=== PATIENT | female | born 1940 | race Caucasian/White ===

== ENCOUNTER 2017-03-30 11:47 | Inpatient (IN) | payer MEDICARE, BC ==
[~2017-03-30] VITALS: Ht 165.1 cm; Wt 77.5 kg
[~2017-03-30 11:47] MED LIST: LYRICA300 MG PO; NUCYNTA50 MG PO; VIMOVO 500-201 EACH PO
[2017-03-30 12:24] LABS: APPEARANCE CLEAR (CLEAR); COLOR YELLOW (YELLOW); GLUCOSE NEGATIVE (NEGATIVE); KETONE NEGATIVE (NEGATIVE); LEUKOCYTE ESTERASE NEGATIVE (NEGATIVE); NITRITE NEGATIVE (NEGATIVE); PROTEIN NEGATIVE (NEGATIVE); SPECIFIC GRAVITY 1.015 (1.005-1.020); UROBILINOGEN NORMAL (NORMAL)
[2017-03-30 12:25] LABS: BILIRUBIN NEGATIVE (NEGATIVE)
[2017-03-30 12:33] LABS: UDS - AMPHET NEGATIVE QUAL (NEGATIVE); UDS - BARB NEGATIVE QUAL (NEGATIVE); UDS - BENZO NEGATIVE QUAL (NEGATIVE); UDS - COCAINE NEGATIVE QUAL (NEGATIVE); UDS - METH NEGATIVE QUAL (NEGATIVE); UDS - OPIATE NEGATIVE QUAL (NEGATIVE); UDS - PCP NEGATIVE QUAL (NEGATIVE); UDS - THC NEGATIVE QUAL (NEGATIVE)
[2017-03-30 12:36] LABS: BASOPHILS 0.1 % (0-2); EOSINOPHILS 0 % (0-7); HEMATOCRIT 42.7 % (36.0-48.0); HEMOGLOBIN 14.4 g/dL (12-16); IMMATURE GRANULOCYTES 0.3 % (0-5); LYMPHOCYTES 7.1 % (15-50); MCH 30.6 pg (26.0-34.0); MCHC 33.7 g/dL (31.0-37.0); MCV 90.7 fL (80.0-100.0); MEAN PLATELET VOLUME 10.4 fL (7.4-10.4); MONOCYTES 9.2 % (2-11); NEUTROPHILS 83.3 % (40-80); PLATELET COUNT 243 10x3/uL (130-400); RBC 4.71 10x6/uL (4.00-5.40); RDW 12.9 % (11.5-14.5); WBC 11.1 10x3/uL (4.8-10.8)
[2017-03-30 12:42] LABS: APTT 21.8 SECONDS (22.8-39.4); INR 1.07 (0.85-1.17); PROTIME 13.7 SECONDS (11.6-15.0)
[2017-03-30 12:53] LABS: ALBUMIN 3.2 g/dL (3.4-5.0); ALKALINE PHOSPHATASE 96 U/L (46-116); ALT (SGPT) 25 U/L (10-68); CALC OSMOLALITY 280 mosm/kg (275-300); CALCIUM 9.4 mg/dL (8.5-10.1); CARBON DIOXIDE 24.2 mmol/L (21.0-32.0); CHLORIDE - SERUM 101 mmol/L (98-107); CREATININE - SERUM 0.9 mg/dL (0.6-1.3); GLUCOSE 125 mg/dL (74-106); POTASSIUM - SERUM 4.1 mmol/L (3.5-5.1); PROTEIN - SERUM 7.8 g/dL (6.4-8.2); SODIUM 137 mmol/L (136-145); UREA NITROGEN 30 mg/dL (7-18); eGFR NON AFRICAN AMERICAN 64 mL/min (90-120)
[2017-03-30 13:12] LABS: CREATINE KINASE 339 UL (21-215); MAGNESIUM - SERUM 2.4 mg/dL (1.8-2.4); TROPONIN-I < 0.017 ng/mL (0.000-0.060)
[2017-03-30 13:14] LABS: CKMB 4.3 U/L (0.0-3.6)
[2017-03-30 15:56] VITALS: BP 149/75; BMI 26.1
--- NOTE | 2017-03-30 16:32 | NUR ---
Patient too confused to answer MRI screening sheet. Attempted to call her son, Alan Elliott, to get information. Her son did not answer. Told nurse, Concepcion Andujar, MRI can not be done until MRI screening sheet is completed.
--- NOTE | 2017-03-30 18:39 | NUR ---
PT IS CONFUSSED, BED ALARM ON. INSTRUCTED PT TO PLEASE USE CALL HAGAN WHEN SHE NEEDS TO GET UP. WILL CONTINUE TO MONITOR
[2017-03-30 20:00] VITALS: BP 154/75
--- NOTE | 2017-03-30 22:01 | NUR ---
PT RESTING IN BED WITH RESPS EVEN/NONLABORED. DENIES PAIN OR DISCOMFORT. SALINE LOCK TO LEFT WRIST. GRADY PATENT TO BEDSIDE DRAIN BAG. BED ALARM DUE TO NOTED CONFUSION AND FORGETFULNESS. SEE SHIFT ASSESSMENT. MONITOR AND CPOC.
[2017-03-31] VITALS: BP 152/82
[2017-03-31 04:00] VITALS: BP 148/78
[2017-03-31 08:00] VITALS: BP 148/79
[2017-03-31 12:00] VITALS: BP 132/52
--- NOTE | 2017-03-31 15:15 | NUR ---
SLEEPING IN BED. GRADY DRAINING BY GRAVITY AT BEDSIDE. RESPIRATIONS NONLABORED. CONTINUE PLAN OF CARE. BED ALARM ON. THREE SIDERAILS UP. BED LOCKED AND LOW. CALL LIGHT IN REACH.
--- NOTE | 2017-03-31 15:37 | NUR ---
ALERT. OBSERVED TRYING TO CLIMB OUT OF BED. ASSIST BACK TO BED AND REORIENT TO ROOM, REMOTE, AND SITUATION. DENIES ANY NEEDS. CONTINUE PLAN OF CARE. BED ALARM ON. BED LOCKED AND LOW. CALL LIGHT IN REACH. THREE SIDERAILS UP.
[2017-03-31 20:00] VITALS: BP 146/68
[2017-04-01] VITALS: BP 151/81
[2017-04-01 04:00] VITALS: BP 151/81
--- NOTE | 2017-04-01 05:56 | NUR ---
PT IS ALERT/CONFUSED TO SITUATION AND TIME. SHE OFTEN WILL STAND UP BESIDE HER BED (SETTING OFF BED ALARM) AND LOOK VERY CONFUSED. SHE HAS A GRADY PATENT TO BEDSIDE DRAIN BAG. HER AFFECT IS FLAT AND SHE OFTEN SEEMS TO BE TRYING TO ANSWER THE SIMPLE QUESTIONS GIVEN TO HER BUT CANNOT FIND THE CORRECT WORDS. SHE VOICES NO PAIN OR DISCOMFORT. ALL HER HOME MEDS REMAIN ON HOLD AND SHE ASKS FOR NOTHING. SHE SEEMS TO HAVE NO RECOLLECTIONS FROM ONE CONVERSATION TO THE NEXT. STAFF HAVE KEPT HER SAFE WITH A BED ALARM. GRADY CARE HAS BEEN PROVIDED. CPOC.
[2017-04-01 08:22] VITALS: Ht 165.1 cm; Wt 77.5 kg
[2017-04-01 09:41] VITALS: BP 153/83
--- NOTE | 2017-04-01 11:00 | NUR ---
ALERT AND ORIENTED X4. ABLE TO SPEAK FULL SENTENCES. REQUESTING PAIN MEDICATION FOR RT FOOT. ABLE TO TELL MEDICATIONS TAKING AT HOME. PAGE DOCTOR. ORDERS VIA TELEPHONE 10mg PERCOCET Q 6HPRN AND TO CONTINUE HOME DOSE LYRICA. ICE PACK PLACED OVER RT FOOT PER PATIENT REQUEST. FRIENDS FROM [facility] IN ROOM. DENIES SOB. CONTINUE PLAN OF CARE. BED LOCKED AND LOW. CALL LIGHT IN REACH. TWO SIDERAILS UP. GRADY DRAINING AT BEDSIDE.
[2017-04-01 12:23] VITALS: BP 129/51
[2017-04-01 17:06] VITALS: BP 119/66
[2017-04-01 20:33] VITALS: BP 129/52
--- NOTE | 2017-04-01 20:42 | NUR ---
HS MEDS GIVEN WITH FRESH ICE WATER, PT DENIES OTHER NEEDS, BED LOW, CL IN REACH, WILL CONT TO MONITOR.
[2017-04-02 01:51] VITALS: BP 112/60
--- NOTE | 2017-04-02 03:17 | NUR ---
RESTING WITH EYES CLOSED, RESPERATIONS EVEN, NO S/S DISTRESS NOTED.
[2017-04-02 05:48] VITALS: BP 121/62
[2017-04-02 08:00] VITALS: BP 152/65
[2017-04-02 11:58] VITALS: BP 126/51
--- NOTE | 2017-04-02 13:12 | NUR ---
ALERT AND ORIENTED X4. RESTING IN BED. GNOSTICISM MEMBER AT BEDSIDE. GRADY DRAINING BY GRAVITY AT BEDSIDE. DENIES SOB. CHRONIC PAIN TOLERATED. DENIES ANY NEEDS. CONTINUE PLAN OF CARE. BED LOCKED AND LOW. CALL LIGHT IN REACH. TWO SIDERAILS UP.
[2017-04-02 16:00] VITALS: BP 119/57
[2017-04-02 21:21] VITALS: BP 128/65
[2017-04-03 01:26] VITALS: BP 116/60
[2017-04-03] MEDS ORDERED: AZELASTINE137 MCG/0. NASAL (02:22)
[2017-04-03] MEDS ORDERED: CELEXA20 MG PO (02:22)
[2017-04-03] MEDS ORDERED: OXYMORPHONE HCL10 MG PO (02:23)
[2017-04-03 04:59] VITALS: BP 111/63
--- NOTE | 2017-04-03 06:40 | NUR ---
PT LYING IN BED, EYES CLOSED, RESPIRATIONS EVEN AND UNLABORED. PT EASILY ROUSABLE TO VERBAL STIMULI, DENIES ANY NEEDS. CONTINUE TO MONITOR CLOSELY.
--- NOTE | 2017-04-03 07:57 | NUR ---
AM ROUNDS - PT APPEARS TO BE SLEEPING WITH EQUAL AND NON LABORED BREATHING. PT IS ON ROOM AIR. GRADY DRAINING CLEAR YELLOW. LEFT WRIST IV, SL. WILL CONTINUE TO MONITOR.
[2017-04-03 08:00] VITALS: BP 139/72
[2017-04-03 10:04] LABS: BASOPHILS 0.2 % (0-2); EOSINOPHILS 1.9 % (0-7); HEMATOCRIT 40.7 % (36.0-48.0); HEMOGLOBIN 13.4 g/dL (12-16); IMMATURE GRANULOCYTES 1.2 % (0-5); LYMPHOCYTES 7.5 % (15-50); MCH 30.5 pg (26.0-34.0); MCHC 32.9 g/dL (31.0-37.0); MCV 92.5 fL (80.0-100.0); MEAN PLATELET VOLUME 9.6 fL (7.4-10.4); NEUTROPHILS 74.2 % (40-80); PLATELET COUNT 250 10x3/uL (130-400); RDW 13.3 % (11.5-14.5)
[2017-04-03 10:19] LABS: ALBUMIN 2.2 g/dL (3.4-5.0); ALKALINE PHOSPHATASE 81 U/L (46-116); ALT (SGPT) 31 U/L (10-68); BILIRUBIN - TOTAL 0.23 mg/dL (0.2-1.3); CALC OSMOLALITY 273 mosm/kg (275-300); CALCIUM 8.1 mg/dL (8.5-10.1); CARBON DIOXIDE 29.1 mmol/L (21.0-32.0); CHLORIDE - SERUM 102 mmol/L (98-107); CREATININE - SERUM 0.7 mg/dL (0.6-1.3); GLUCOSE 116 mg/dL (74-106); POTASSIUM - SERUM 3.6 mmol/L (3.5-5.1); PROTEIN - SERUM 6.4 g/dL (6.4-8.2); SODIUM 136 mmol/L (136-145); UREA NITROGEN 14 mg/dL (7-18); eGFR NON AFRICAN AMERICAN 85 mL/min (90-120)
[2017-04-03 11:57] VITALS: BP 106/58
--- NOTE | 2017-04-03 15:10 | NUR ---
PT IN BED BEEN RESTING MOST OF THE DAY. PT HAS ONE EPISODE OF MINIMAL CONFUSION THIS MORNING BUT I HAD JUST WORK HER UP. SHE HAS BEEN A&O ALL OTHER TIMES. C/O RIGHT FOOT PAIN EARLIER TODAY, PAIN MEDS GIVEN. NO OTHER NEEDS AT THIS TIME. WILL CONTINUE TO MONITOR
[2017-04-03 15:44] VITALS: BP 121/54
--- NOTE | 2017-04-03 17:07 | NUR ---
Patient Name: MOISES MARTINEZ Admission Status: ER Accout number: [id number] Admission Date: 04-01-2017 : 1940 Admission Diagnosis: Attending: TIKA Current LOS: 2 Anticipated DC Date: Planned Disposition: Shelter Facility Primary Insurance: MEDICARE A & B PLANNED EXTERNAL PROVIDER: [facility], MEDICARE REHAB BED Discharge Planning Comments: * Is the patient Alert and Oriented? Yes 0 * How many steps to enter\exit or inside your home? 5 0 * PCP DR. ROTHMAN 0 * Pharmacy [facility] 0 * Preadmission Environment Home Alone 0 * ADLs Independent 0 * Equipment Walker 0 * Other Equipment NO MEDICAL EQUIPMENT PROVIDER PREFERENCE 0 * List name and contact numbers for known caregivers / representatives who currently or will assist patient after discharge: ALMA ROSA MACIAS, PSYCHOLOGY TEACHER/POA, TYRONEDUONG OAKLEY, FRIEND, 0 * Community resources currently utilized None 0 * Please name any agencies selected above. NONE 0 * Additional services required to return to the preadmission environment? Yes * Can the patient safely return to the preadmission environment? No 0 * Has this patient been hospitalized within the prior 30 days at any hospital? No 0 CM MET WITH PT IN ROOM TO DISCUSS DISCHARGE PLANNING AND NEEDS. PT REPORTS LIVING AT HOME INDEPENDENTLY AND ALONE. PT HAS A WALKER THAT SHE HAS NOT BEEN USING AND NO MEDICAL EQUIPMENT PROVIDER. PT HAS NO OUTSIDE SERVICES ASSISTING IN THE HOME. CM DISCUSSED AVAILABILITY OF HOME HEALTH, REHAB SERVICES AND MEDICAL EQUIPMENT. PT WOULD LIKE TO GO TO REHAB AT [facility]; CHOICE SIGNED. PT DOES NOT THINK AT THIS POINT SHE COULD EVEN GET OUT OF BED ON HER OWN AND DOES NOT THINK SHE CAN PARTICIPATE IN THREE HOURS OF PROGRESSIVE THERAPY PER DAY. PT REPORTS HER FRIEND, TYRONE, WILL PICK HER UP FOR DISCHARGE HOME. CM FAXED REFERRAL TO [facility], ; CM WILL NEED TO FAX COMPLETED PHYSICAL THERAPY EVALUATION WHEN DOCUMENTED FOR REHAB SCREENING. Cake Stripper: Porter Davis
[2017-04-03 19:00] VITALS: BP 140/76
--- NOTE | 2017-04-03 20:42 | NUR ---
PT AWAKE, ALERT, ORIENTED, LOOKING AT TV, C/O GREAT PAIN IN HER RT FOOT/ANKLE. PT DENIES ANY OTHER NEEDS. PT STATES SHE HAS NOT BEEN UP WALKING TODAY, BUT WOULD LIKE TO. GRADY DRAINING CLEAR, YELLOW URINE. CONTINUE TO MONITOR CLOSELY. BED LOW, CALL LIGHT IN REACH, SIDE RAILS X 2, HOB 30 DEGREES.
[2017-04-04] VITALS: BP 115/63
[2017-04-04 04:00] VITALS: BP 125/76
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
--- NOTE | 2017-04-04 08:08 | NUR ---
ASSESSMENT DONE. DENIES NEEDS.
[2017-04-04 08:22] VITALS: BP 128/73
--- NOTE | 2017-04-04 09:06 | NUR ---
RESTS IN BED WITH CALL LIGHT IN REACH. RT AT BS. WILL CONT. PLAN OF CARE.
--- NOTE | 2017-04-04 10:49 | NUR ---
Nutrition follow-up: Diet: Regular PO intake ~75% average of meals Labs reviewed Wt: 169# +BM PO intake is good at this time. RDN following.
[2017-04-04 12:26] VITALS: BP 115/62
--- NOTE | 2017-04-04 12:40 | NUR ---
Patient Name: MOISES MARTINEZ Encounter No: [id number] : 1940 Primary Insurance: MEDICARE A & B Anticipated DC Date: Planned Disposition: [facility] Facility External Planned Provider: [facility], MEDICARE REHAB BED DCP follow-up note: CM FAXED PT EVALUATION AND NOTE TO [facility] WITH TREATMENT UPDATE, . CM CALLED AND SPOKE TO ANDRIA AT [facility], WHO REPORTS PT LOOKS GOOD FOR REHAB AND THEY PLAN TO ACCEPT AT DISCHARGE. FOR DISCHARGE, FAX DISCHARGE INFORMATION TO [facility], , NURSE REPORT TO BE CALLED TO [facility], . [facility] TO ARRANGE VAN TRANSPORT. Porter Davis, CASE MANAGEMENT
--- NOTE | 2017-04-04 14:53 | NUR ---
[facility] HAS ACCEPTED PATIENT AND IS COMING TO DO PAPERWORK WITH HER, PER ELSA ASCENCIO. SPOKE WITH DR ROTHMAN'S NURSE, THIS WAS EXPLAINED TO HER, AND ASKED IF THERE WERE PLANS IN REGARDS TO DISCHARGE SO THAT WE KNEW WHAT TO TELL THE SENIOR LIVING. AFTER BEING PLACED ON HOLD, SHE CAME BACK AND STATED THAT DR ROTHMAN WAS GOOD WITH PLACEMENT AND, PER HER, HE WOULD GO AHEAD AND PUT THE DISCHARGE ORDERS IN THE COMPUTER SYSTEM. WILL EXPLAIN THIS TO SILVA, NIGHT PATROL INSPECTOR.
--- NOTE | 2017-04-04 16:21 | NUR ---
Patient Name: MOISES MARTINEZ Encounter No: [id number] : 1940 Primary Insurance: MEDICARE A & B Anticipated DC Date: 04-04-2017 Planned Disposition: [facility] Facility External Planned Provider: [facility], MEDICARE REHAB BED DCP follow-up note: CM SPOKE TO PT IN ROOM, NOTIFIED OF ACCEPTANCE FOR REHAB BY [facility], PT IN AGREEMENT WITH DISCHARGE TO REHAB AT [facility]. RN HOUSE NOTIFIED DR. ROTHMAN OF REHAB PLACEMENT FOR PT. ANDRIA FROM [facility] CAME TO HOSPITAL AND COMPLETED ADMISSION PAPERWORK WITH PT. IMPORTANT MESSAGE FROM MEDICARE PROVIDED AND EXPLAINED. FOR DISCHARGE, FAX DISCHARGE INFORMATION TO [facility], , NURSE REPORT TO BE CALLED TO [facility], . [facility] TO ARRANGE VAN TRANSPORT. Porter Davis, CASE MANAGEMENT
[2017-04-04 16:30] VITALS: BP 127/70
--- NOTE | 2017-04-04 17:53 | NUR ---
WITHOUT CHANGES OR DISTRESS NOTED AT THIS TIME. DENIES NEEDS.
[2017-04-04 19:00] VITALS: BP 133/65
--- NOTE | 2017-04-04 22:28 | NUR ---
PT LYING IN BED, EYES CLOSED, RESPIRATIONS EVEN AND UNLABORED. PT EASILY ROUSABLE TO VERBAL STIMULI, DENIES ANY NEEDS. PT STATES SHE IS LOOKING FORWARD TO GOING TO [place] TOMORROW FOR REHAB. PT STATES SHE WALKED AROUND THE UNIT TWO DIFFERENT TIMES WALKING A TOTAL OF 3 LAPS, AND TOLERATED IT WELL. PT STATES SHE WAS TIRED AFTER THE SECOND TIME, BUT FELT BETTER AFTER WALKING. CONTINUE TO MONITOR CLOSELY. BED LOW, CALL LIGHT IN REACH, SIDE RAILS X 2, HOB 30 DEGREES.
[2017-04-05] VITALS: BP 128/71
--- NOTE | 2017-04-05 00:44 | NUR ---
PT CALLED, C/O PRESSURE AND DISCOMFORT WITH HER GRADY CATHETER, WITH POSSIBLE BLADDER SPASMS. AFTER TALKING WITH PATIENT, AND DOING TEACHING ON BLADDER TRAINING, URINARY URGENCY, FREQUENCY, AND THE NEED FOR ASSISTANCE TO GET UP, SHE STATED THAT SHE DID WANT THE CATHETER REMOVED SINCE SHE WAS FEELING BETTER AND WALKED EARLIER DURING DAY SHIFT. PT HAS AGREED TO CALL FOR ASSISTANCE EVERY TIME SHE FEELS THE NEED TO VOID, AND HAS AGREED NOT TO GET UP ON HER OWN. PT HAS ALSO AGREED TO CALL IF SHE HAS NOT VOID WITHIN THREE-4 HOURS. GRADY REMOVED WITHOUT ANY DIFFICULTY, AFTER DEFLATION OF 10CC BALLOON. CONTINUE TO MONITOR CLOSELY.
[2017-04-05 04:00] VITALS: BP 146/63
--- NOTE | 2017-04-05 06:33 | NUR ---
PT DID HAVE URINARY URGENCY WITH INCONTINENCE R/T HAVING GRADY REMOVED. PT WAS ABLE TO AMBULATE TO BATHROOM WITHOUT ANY DIFFICULTY. PT WAS CLEANED, BED LINEN CHANGED, NEW NON SLIP SOCKS PLACED BILATERALLY, AND DISPOSABLE BRIEF PLACED ON PT FOR POSSIBLE FUTURE EVENTS. PT REMAINS AWAKE, ALERT, ORIENTED, AND DENIES ANY NEEDS. PT TO CALL NEXT TIME SHE NEEDS TO VOID. BED LOW, CALL LIGHT IN REACH, SIDE RAILS X 2, HOB 20 DEGREES.
--- NOTE | 2017-04-05 07:39 | NUR ---
ASSESSMENT DONE. DENIES NEEDS
[2017-04-05 07:56] VITALS: BP 120/62
--- NOTE | 2017-04-05 09:23 | NUR ---
RESTS WITH EYES CLOSED. CALL LIGHT IN REACH. WILL MONITOR NEEDS.
[2017-04-05] MEDS ORDERED: APAP325 MG PO (12:26)
[2017-04-05 12:44] VITALS: BP 120/63
--- NOTE | 2017-04-05 14:30 | NUR ---
Patient Name: MOISES MARTINEZ Encounter No: [id number] : 1940 Primary Insurance: MEDICARE A & B Anticipated DC Date: 04-05-2017 Planned Disposition: Residential Facility External Planned Provider: [facility], MEDICARE REHAB BED DCP follow-up note: CM RECEIVED DISCHARGE ORDERS, FAXED DISCHARGE INFORMATION TO [facility], . CM NOTIFIED PT WHO IS IN AGREEMENT WITH DISCHARGE TO [facility] TODAY. CM NOTIFIED ANDRIA AT [facility] WHO WILL ARRANGE VAN MATERIALS ENGINEER THIS AFTERNOON. NURSE REPORT TO BE CALLED TO [facility], . [facility] TO ARRANGE VAN TRANSPORT. Porter Davis, CASE MANAGEMENT
--- NOTE | 2017-04-05 14:54 | NUR ---
REPORT CALLED TO JEIMY DELACRUZ.
--- NOTE | 2017-04-05 15:30 | NUR ---
DC TO [facility] PER VAN
== END 2017-04-05 15:31 | DRG 93 ==
LOC: D.ER 11:47 → OBSVTIME 15:02 → D.M2 15:02
PROVIDERS: Emergency Medicine; Legal Medicine; ADMIT Internal Medicine Hematology
DX: G92 Toxic encephalopathy (principal); T50.905A Adverse effect of unspecified drugs, medicaments and biological substances, initial encounter; Y92.89 Other specified places as the place of occurrence of the external cause; G62.9 Polyneuropathy, unspecified

== ENCOUNTER 2018-04-10 10:52 | Emergency (ER) | payer MEDICARE, BC ==
[~2018-04-10] VITALS: Ht 165.1 cm; Wt 81.8 kg
[~2018-04-10 10:52] MED LIST changes: +APAP325 MG PO; +AZELASTINE137 MCG/0. NASAL; +CELEXA20 MG PO; +OXYMORPHONE HCL10 MG PO
[2018-04-10 11:22] VITALS: Ht 165.1 cm; Wt 81.8 kg
[2018-04-10 14:24] VITALS: BP 158/078
== END 2018-04-10 14:24 | disposition home or self-care (01) ==
LOC: D.ER 10:52
DX: M25.571 Pain in right ankle and joints of right foot (principal)

== ENCOUNTER 2018-05-06 15:27 | Emergency (ER) | payer MEDICARE, BC ==
[2018-05-06 16:04] VITALS: Ht 165.1 cm
[2018-05-06 17:04] LABS: BASOPHILS 0.2 % (0-2); EOSINOPHILS 0.1 % (0-7); HEMOGLOBIN 14.2 g/dL (12-16); IMMATURE GRANULOCYTES 0.4 % (0-5); LYMPHOCYTES 11.6 % (15-50); MCH 30.7 pg (26.0-34.0); MCV 92.9 fL (80.0-100.0); MEAN PLATELET VOLUME 11.2 fL (7.4-10.4); MONOCYTES 5.4 % (2-11); NEUTROPHILS 82.3 % (40-80); PLATELET COUNT 245 10x3/uL (130-400); RBC 4.63 10x6/uL (4.00-5.40); RDW 13.8 % (11.5-14.5); WBC 8.4 10x3/uL (4.8-10.8)
[2018-05-06 17:12] LABS: INR 1.03 (0.85-1.17); PROTIME 13.1 SECONDS (11.6-15.0)
[2018-05-06 17:14] LABS: D-DIMER-QUANTITATIVE 1.09 ug/mLFEU (0.20-0.54)
[2018-05-06 17:29] LABS: ALBUMIN 3.7 g/dL (3.4-5.0); ALKALINE PHOSPHATASE 101 U/L (46-116); ALT (SGPT) 22 U/L (10-68); CALC OSMOLALITY 282 mosm/kg (275-300); CALCIUM 9.5 mg/dL (8.5-10.1); CHLORIDE - SERUM 103 mmol/L (98-107); CREATININE - SERUM 0.9 mg/dL (0.6-1.3); GLUCOSE 129 mg/dL (74-106); POTASSIUM - SERUM 3.8 mmol/L (3.5-5.1); SODIUM 140 mmol/L (136-145); UREA NITROGEN 17 mg/dL (7-18); eGFR NON AFRICAN AMERICAN 64 mL/min (90-120)
[2018-05-06 17:40] LABS: CKMB 1.4 U/L (0.0-3.6); CREATINE KINASE 79 UL (21-215)
[2018-05-06 17:44] LABS: TROPONIN-I < 0.017 ng/mL (0.000-0.060)
[2018-05-06 22:14] LABS: APPEARANCE CLEAR (CLEAR); BILIRUBIN NEGATIVE (NEGATIVE); COLOR DK YELLOW (YELLOW); GLUCOSE NEGATIVE (NEGATIVE); KETONE SMALL mg/dL (NEGATIVE); NITRITE NEGATIVE (NEGATIVE); PROTEIN NEGATIVE (NEGATIVE); UROBILINOGEN NORMAL (NORMAL)
[2018-05-06 22:16] LABS: WHITE CELLS - URINE 0-5 /hpf (0-5)
[2018-05-06 22:17] LABS: BACTERIA FEW /hpf (NONE SEEN); EPITHELIAL CELLS 0-5 /hpf (0-5); MUCUS <1+ /lpf (NONE SEEN)
[2018-05-06] MEDS ORDERED: MACROBID100 MG PO (22:22)
[2018-05-07 07:50] VITALS: BP 136/78
== END 2018-05-07 07:20 | disposition home or self-care (01) ==
LOC: D.ER 15:27
PROVIDERS: Family Medicine
DX: N39.0 Urinary tract infection, site not specified (principal); M25.571 Pain in right ankle and joints of right foot; R05 Cough; R53.1 Weakness; M79.661 Pain in right lower leg

== ENCOUNTER 2018-05-14 11:13 | Inpatient (IN) | payer MEDICARE, BC ==
[~2018-05-14] VITALS: Ht 165.1 cm; Wt 72.7 kg
[~2018-05-14 11:13] MED LIST changes: +MACROBID100 MG PO
[2018-05-14 12:48] LABS: BASOPHILS 0.1 % (0-2); EOSINOPHILS 0.1 % (0-7); HEMATOCRIT 42.7 % (36.0-48.0); HEMOGLOBIN 14.1 g/dL (12-16); IMMATURE GRANULOCYTES 0.3 % (0-5); LYMPHOCYTES 10.9 % (15-50); MCH 30.3 pg (26.0-34.0); MCV 91.8 fL (80.0-100.0); MEAN PLATELET VOLUME 10.6 fL (7.4-10.4); NEUTROPHILS 78.6 % (40-80); PLATELET COUNT 258 10x3/uL (130-400); RBC 4.65 10x6/uL (4.00-5.40); RDW 13.6 % (11.5-14.5); WBC 7.6 10x3/uL (4.8-10.8)
[2018-05-14 13:04] LABS: ALBUMIN 3.4 g/dL (3.4-5.0); ANION GAP 8.9 mmol/L (8-16); BILIRUBIN - TOTAL 0.69 mg/dL (0.2-1.3); CALCIUM 8.7 mg/dL (8.5-10.1); CARBON DIOXIDE 30.6 mmol/L (21.0-32.0); CREATININE - SERUM 0.8 mg/dL (0.6-1.3); POTASSIUM - SERUM 3.5 mmol/L (3.5-5.1); PROTEIN - SERUM 7.1 g/dL (6.4-8.2)
[2018-05-14 15:27] VITALS: BP 165/84; BMI 26.6
[2018-05-14 15:36] LABS: APPEARANCE CLEAR (CLEAR); BILIRUBIN NEGATIVE (NEGATIVE); COLOR DK YELLOW (YELLOW); GLUCOSE NEGATIVE (NEGATIVE); KETONE SMALL mg/dL (NEGATIVE); NITRITE NEGATIVE (NEGATIVE); PROTEIN NEGATIVE (NEGATIVE); SPECIFIC GRAVITY 1.015 (1.005-1.020); UROBILINOGEN NORMAL (NORMAL)
[2018-05-14 16:09] VITALS: BP 165/84
[2018-05-14 20:00] VITALS: BP 127/59
[2018-05-15] VITALS: BP 107/56
[2018-05-15 09:10] VITALS: BP 129/69
[2018-05-15 12:22] VITALS: BP 125/68
[2018-05-15 14:59] VITALS: Ht 165.1 cm; Wt 72.7 kg
[2018-05-15 16:13] VITALS: BP 127/80
[2018-05-15 20:29] VITALS: BP 120/55
[2018-05-16 04:06] VITALS: BP 128/70
[2018-05-16 09:23] VITALS: BP 131/69
[2018-05-16 12:44] VITALS: BP 113/62
[2018-05-16 17:00] VITALS: BP 137/69
[2018-05-17 03:50] VITALS: BP 133/77
[2018-05-17 07:07] VITALS: BP 118/68
[2018-05-17 12:28] VITALS: BP 110/71
[2018-05-17] MEDS ORDERED: CELEXA20 MG PO (13:52)
[2018-05-17] MEDS ORDERED: NEURONTIN 300300 MG PO (13:52)
[2018-05-17] MEDS ORDERED: PROAIR HFA8.5 GM INH (13:52)
[2018-05-17] MEDS ORDERED: PERCOCET 5-3251 TAB PO (13:53)
[2018-05-17] MEDS ORDERED: HCTZ25 MG PO (13:53)
[2018-05-17] MEDS ORDERED: ZOFRAN4 MG PO (13:54)
[2018-05-17] MEDS ORDERED: Astelin NASAL SPRAY NASAL (13:54)
[2018-05-17] MEDS ORDERED: MILK OF MAGNESI30 ML PO (13:54)
== END 2018-05-17 15:13 | DRG 884 ==
LOC: D.MS 11:13
PROVIDERS: Legal Medicine
DX: R41.81 Age-related cognitive decline (principal); G72.9 Myopathy, unspecified; G62.9 Polyneuropathy, unspecified; G89.29 Other chronic pain; M25.571 Pain in right ankle and joints of right foot

== ENCOUNTER → 2018-10-06 13:41 | Outpatient (CLI) | payer MEDICARE, BC ==
[2018-05-15 14:59] VITALS: BMI 26.6
[~2018-10-06 13:41] MED LIST changes: +Astelin NASAL SPRAY NASAL; +HCTZ25 MG PO; +MILK OF MAGNESI30 ML PO; +NEURONTIN 300300 MG PO; +PERCOCET 5-3251 TAB PO; +PROAIR HFA8.5 GM INH; +ZOFRAN4 MG PO
[2018-10-06 14:34] LABS: BASOPHILS 0.4 % (0-2); EOSINOPHILS 2.3 % (0-7); HEMATOCRIT 43.2 % (36.0-48.0); HEMOGLOBIN 13.9 g/dL (12-16); IMMATURE GRANULOCYTES 0.1 % (0-5); LYMPHOCYTES 26.9 % (15-50); MCH 30.2 pg (26.0-34.0); MCHC 32.2 g/dL (31.0-37.0); MCV 93.9 fL (80.0-100.0); MEAN PLATELET VOLUME 10.9 fL (7.4-10.4); MONOCYTES 10.9 % (2-11); NEUTROPHILS 59.4 % (40-80); PLATELET COUNT 229 10x3/uL (130-400); RDW 13.5 % (11.5-14.5); WBC 7.9 10x3/uL (4.8-10.8)
[2018-10-06 15:03] LABS: ANION GAP 12.4 mmol/L (8-16); CALCIUM 8.6 mg/dL (8.5-10.1); CARBON DIOXIDE 29.7 mmol/L (21.0-32.0); CREATININE - SERUM 0.9 mg/dL (0.6-1.3); POTASSIUM - SERUM 4.1 mmol/L (3.5-5.1)
== END | disposition home or self-care (01) ==
LOC: D.LAB 13:41
PROVIDERS: Pain Medicine Interventional Pain Medicine
DX: Z01.812 Encounter for preprocedural laboratory examination (principal)

== ENCOUNTER → 2019-01-23 19:28 | Outpatient (CLI) | payer MEDICARE, BC ==
[2018-05-15 14:59] VITALS: BMI 26.6
== END | disposition home or self-care (01) ==
LOC: D.LABREF 19:28
DX: R31.9 Hematuria, unspecified (principal)

== ENCOUNTER → 2019-01-25 15:22 | Outpatient (CLI) | payer MEDICARE, BC ==
[2018-05-15 14:59] VITALS: BMI 26.6
[2019-01-25 15:51] LABS: BASOPHILS 0.2 % (0-2); EOSINOPHILS 0.1 % (0-7); HEMATOCRIT 42.2 % (36.0-48.0); HEMOGLOBIN 13.9 g/dL (12-16); IMMATURE GRANULOCYTES 0.1 % (0-5); LYMPHOCYTES 14.3 % (15-50); MCH 29.6 pg (26.0-34.0); MCHC 32.9 g/dL (31.0-37.0); MONOCYTES 7.5 % (2-11); NEUTROPHILS 77.8 % (40-80); PLATELET COUNT 246 10x3/uL (130-400); RBC 4.69 10x6/uL (4.00-5.40); RDW 13.5 % (11.5-14.5); WBC 9.3 10x3/uL (4.8-10.8)
[2019-01-25 15:54] LABS: ANION GAP 14.7 mmol/L (8-16); CALCIUM 8.5 mg/dL (8.5-10.1); CARBON DIOXIDE 23.5 mmol/L (21.0-32.0); CREATININE - SERUM 0.9 mg/dL (0.6-1.3); POTASSIUM - SERUM 3.2 mmol/L (3.5-5.1)
== END | disposition home or self-care (01) ==
LOC: D.LABREF 15:22
PROVIDERS: ATTEND Legal Medicine
DX: T14.8XXA Other injury of unspecified body region, initial encounter (principal); X58.XXXA Exposure to other specified factors, initial encounter

== ENCOUNTER 2019-04-05 05:00 | Emergency (ER) | payer MEDICARE, BC ==
[2019-04-05 05:05] VITALS: BMI 29.8
[2019-04-05 05:20] LABS: BASOPHILS 0.1 % (0-2); EOSINOPHILS 0.7 % (0-7); HEMATOCRIT 39.2 % (36.0-48.0); HEMOGLOBIN 12.9 g/dL (12-16); IMMATURE GRANULOCYTES 0.3 % (0-5); LYMPHOCYTES 26.6 % (15-50); MCH 30.2 pg (26.0-34.0); MCHC 32.9 g/dL (31.0-37.0); MCV 91.8 fL (80.0-100.0); MEAN PLATELET VOLUME 10.8 fL (7.4-10.4); MONOCYTES 15.7 % (2-11); NEUTROPHILS 56.6 % (40-80); PLATELET COUNT 214 10x3/uL (130-400); RBC 4.27 10x6/uL (4.00-5.40); RDW 14.3 % (11.5-14.5); WBC 7.5 10x3/uL (4.8-10.8)
[2019-04-05 05:35] LABS: ALBUMIN 3.4 g/dL (3.4-5.0); ANION GAP 11.1 mmol/L (8-16); BILIRUBIN - TOTAL 0.71 mg/dL (0.2-1.3); CALCIUM 8.3 mg/dL (8.5-10.1); CARBON DIOXIDE 27.6 mmol/L (21.0-32.0); CREATININE - SERUM 0.8 mg/dL (0.6-1.3); POTASSIUM - SERUM 3.7 mmol/L (3.5-5.1); PROTEIN - SERUM 6.9 g/dL (6.4-8.2)
[2019-04-05] MEDS ORDERED: BENADRYL50 MG PO (06:00)
[2019-04-05] MEDS ORDERED: PREDNISONE50 MG PO (06:00)
[2019-04-05] MEDS ORDERED: ZPAK PO (06:00)
[2019-04-05] MEDS ORDERED: MONODOX100 MG PO (06:03)
[2019-04-05 08:57] VITALS: BP 154/88
== END 2019-04-05 09:16 | disposition home or self-care (01) ==
LOC: D.ER 05:00
PROVIDERS: Family Medicine
DX: T50.905A Adverse effect of unspecified drugs, medicaments and biological substances, initial encounter (principal); Y92.89 Other specified places as the place of occurrence of the external cause

== ENCOUNTER → 2021-02-23 11:51 | Outpatient (CLI) | payer MEDICARE, OTHER ==
[~2021-02-23 11:51] MED LIST changes: +BENADRYL50 MG PO; +MONODOX100 MG PO; +PREDNISONE50 MG PO; +ZPAK PO
== END | disposition home or self-care (01) ==
LOC: D.RAD 11:51
PROVIDERS: ATTEND Legal Medicine
DX: R10.9 Unspecified abdominal pain (principal); K43.9 Ventral hernia without obstruction or gangrene